=== PATIENT | female | born 1965 | race Caucasian/White ===

== ENCOUNTER → 2016-10-13 | Outpatient (CLI) | payer BC ==
[~2016-10-13] MED LIST: ALTACE 5MG5 MG PO; ASPIRIN E.C. 8181 MG PO; BETAPACE 120MG120 MG PO; BETAPACE 80MG80 MG PO; CARDIZEM CD 12120 MG PO; CEPHALEXIN500 M1 PO; CIPRO 500MG TA500 MG PO; COLON HEALTH PO; COZAAR100 MG PO; DILTIAZEM CD240 MG PO; HCTZ 25MG25 MG PO; LIPITOR 10MG10 MG PO; MOTRIN 600600 MG/TAB PO; MULTAQ400 M1 PO; OMEPRAZOLE D/R20 MG PO; PRILOSEC 20MG20 MG PO; TAMBOCOR150 MG PO; TIKOSYN0.25 MG PO; TIKOSYN0.5 MG PO; TOPCARE ASPIRI325 MG PO; TYLENOL 325MG325 MG PO
== END ==
LOC: SUN.DIA 11:08
DX: E11.65 Type 2 diabetes mellitus with hyperglycemia (principal); Z79.4 Long term (current) use of insulin; E66.9 Obesity, unspecified; Z68.43 Body mass index [BMI] 50.0-59.9, adult; Z71.3 Dietary counseling and surveillance; E78.5 Hyperlipidemia, unspecified; I10 Essential (primary) hypertension
CPT/HCPCS: G0108

== ENCOUNTER → 2017-01-01 | Outpatient (CLI) | payer BC | LOC: COL.VAS 10:31 | DX: R60.0 Localized edema (principal) ==

== ENCOUNTER → 2017-01-12 | Outpatient (CLI) | payer BC | LOC: SUN.DIA 14:21 | DX: E11.65 Type 2 diabetes mellitus with hyperglycemia (principal); E66.8 Other obesity; Z68.43 Body mass index [BMI] 50.0-59.9, adult; Z79.4 Long term (current) use of insulin; Z71.3 Dietary counseling and surveillance; E78.5 Hyperlipidemia, unspecified; I10 Essential (primary) hypertension | CPT/HCPCS: G0108 ==

== ENCOUNTER 2017-03-25 16:00 | Outpatient (RCR) | payer BC | END 2017-03-29 | LOC: WSPT | DX: M25.562 Pain in left knee (principal); M25.561 Pain in right knee; M54.5 Low back pain ==

== ENCOUNTER 2017-05-14 16:15 | Outpatient (RCR) | payer BC | END 2017-05-25 08:36 | LOC: WSPT 16:15 | DX: M25.561 Pain in right knee (principal); M25.562 Pain in left knee; M54.9 Dorsalgia, unspecified ==

== ENCOUNTER 2017-09-24 08:43 | Day surgery (SDC) | payer BC ==
[~2017-09-24] VITALS: Ht 162.6 cm; Wt 139.0 kg
[2017-09-24 09:31] VITALS: BP 148/90; PULSE 69; TEMP 98.3
[2017-09-24] MEDS ORDERED: TAMBOCOR50 MG PO (09:38)
[2017-09-24] MEDS ORDERED: ELIQUIS 5MG PO (09:38)
[2017-09-24] MEDS ORDERED: FOLIC ACID 11 MG/TA1 PO (09:39)
[2017-09-24] MEDS ORDERED: LASIX 20MG TABL20 MG PO (09:40)
[2017-09-24] MEDS ORDERED: NEURONTIN300 MG/CAP PO (09:40)
[2017-09-24] MEDS ORDERED: GLYXAMBI1 TAB PO (09:41)
[2017-09-24] MEDS ORDERED: TRESIBA FL200 UNIT/1 SQ (09:42)
[2017-09-24] MEDS ORDERED: HUMALOG KW200 UNIT/1 SQ ×2 (09:44→09:45)
[2017-09-24] MEDS ORDERED: COZAAR100 MG PO (09:45)
[2017-09-24] MEDS ORDERED: TOPROL XL 25MG25 MG PO (09:46)
[2017-09-24] MEDS ORDERED: ALDACTONE 25MG25 M1 PO (09:47)
[2017-09-24] MEDS ORDERED: ZYRTEC 10MG10 MG PO (09:48)
[2017-09-24 10:55] VITALS: BP 147/79; PULSE 61; TEMP 97.6
[2017-09-24 11:10] VITALS: BP 147/66; PULSE 58
== END 2017-09-24 11:30 | disposition home or self-care (01) ==
LOC: SDCO 08:43
DX: K21.0 Gastro-esophageal reflux disease with esophagitis (principal); K29.30 Chronic superficial gastritis without bleeding; R19.5 Other fecal abnormalities; D50.9 Iron deficiency anemia, unspecified; K64.0 First degree hemorrhoids; K63.89 Other specified diseases of intestine; Z79.01 Long term (current) use of anticoagulants; I10 Essential (primary) hypertension; E66.01 Morbid (severe) obesity due to excess calories; Z68.43 Body mass index [BMI] 50.0-59.9, adult
CPT/HCPCS: OP; J2250; J2405; J3010

== ENCOUNTER → 2017-10-01 | Outpatient (CLI) | payer BC ==
[~2017-10-01] MED LIST changes: +ALDACTONE 25MG25 M1 PO; +ELIQUIS 5MG PO; +FOLIC ACID 11 MG/TA1 PO; +GLYXAMBI1 TAB PO; +HUMALOG KW200 UNIT/1 SQ; +LASIX 20MG TABL20 MG PO; +NEURONTIN300 MG/CAP PO; +TAMBOCOR50 MG PO; +TOPROL XL 25MG25 MG PO; +TRESIBA FL200 UNIT/1 SQ; +ZYRTEC 10MG10 MG PO
== END ==
LOC: MC.RAD 09-06 07:20
DX: Z12.31 Encounter for screening mammogram for malignant neoplasm of breast (principal)

== ENCOUNTER → 2018-10-04 | Outpatient (CLI) | payer BC | LOC: MC.RAD 07:20 | DX: Z12.31 Encounter for screening mammogram for malignant neoplasm of breast (principal) ==

== ENCOUNTER 2019-01-11 09:09 | Day surgery (SDC) | payer BC ==
[2019-01-11] VITALS (7 sets, daily range): BP systolic 95–127; BP diastolic 44–91; PULSE 53–55; TEMP 98.2
[~2019-01-11] VITALS: Ht 162.6 cm; Wt 127.9 kg
--- NOTE | 2019-01-11 11:05 | NUR ---
PLEASE SEE MERGE FOR ALL MEDICATION ADMINISTRATION TIMES, SEDATION ASSESSMENT INTRA/POST PROCEDURE. FIO2 NOT USED PER CRM SPECIALIST
--- NOTE | 2019-01-11 11:10 | NUR ---
PLEASE SEE MERGE FOR ALL MEDICATION ADMINISTRATION TIMES, SEDATION ASSESSMENT DURING AND POST PROCEDURE.
[2019-01-11] MEDS ORDERED: CEPHALEXIN500 M1 PO (11:38)
--- NOTE | 2019-01-11 12:18 | NUR ---
MODERATE SEEDATION ASSESSMENT ENTERED LATE. ASSESSMENT DONE AND COMPLETED AT THE TIME OF THE PROCEDURE. PT TRANSFERRED BACK TO [facility] AT 1145.
--- NOTE | 2019-01-11 12:46 | NUR ---
Discharge instructions given to pt.Pt verbalizes understanding.INT removed,catheter tip intact.
--- NOTE | 2019-01-11 12:50 | NUR ---
Pt escorted out by this nurse.
== END 2019-01-11 13:25 | disposition home or self-care (01) ==
LOC: COL.CAR 09:09
DX: Z45.89 Encounter for adjustment and management of other implanted devices (principal); I48.91 Unspecified atrial fibrillation; I10 Essential (primary) hypertension; E78.5 Hyperlipidemia, unspecified; G47.33 Obstructive sleep apnea (adult) (pediatric); E66.9 Obesity, unspecified; Z68.42 Body mass index [BMI] 45.0-49.9, adult; Z79.899 Other long term (current) drug therapy; E11.40 Type 2 diabetes mellitus with diabetic neuropathy, unspecified; Z79.01 Long term (current) use of anticoagulants; Z79.82 Long term (current) use of aspirin
CPT/HCPCS: J0690; J2250; J3010

== ENCOUNTER → 2020-03-05 | Outpatient (CLI) | payer BC | LOC: MC.RAD 15:42 | DX: Z12.31 Encounter for screening mammogram for malignant neoplasm of breast (principal) ==

== ENCOUNTER → 2020-06-12 | Outpatient (CLI) | payer BC | LOC: COL.RAD 12:47 | DX: M71.38 Other bursal cyst, other site (principal); M51.26 Other intervertebral disc displacement, lumbar region; M48.061 Spinal stenosis, lumbar region without neurogenic claudication ==

== ENCOUNTER → 2020-07-10 | Outpatient (CLI) | payer BC | LOC: MHCPAIN 10:32 | DX: M47.817 Spondylosis without myelopathy or radiculopathy, lumbosacral region (principal); G89.29 Other chronic pain; M54.5 Low back pain; M53.3 Sacrococcygeal disorders, not elsewhere classified; E66.01 Morbid (severe) obesity due to excess calories; E11.9 Type 2 diabetes mellitus without complications; Z79.4 Long term (current) use of insulin | CPT/HCPCS: G0463 ==

== ENCOUNTER 2020-07-16 17:48 | Inpatient (IN) | payer BC ==
[~2020-07-16] VITALS: Ht 165.1 cm; Wt 127.9 kg
[2020-07-16 19:30] LABS: BASO % 0.2 % (0.0-2.0); GRAN # 3.6 (1.4-6.5); GRAN % 78.6 % (42.2-75.2); HEMATOCRIT 41.8 % (37.0-47.0); HEMOGLOBIN 12.9 g/dl (12.5-16.0); LYMPH # 0.6 (1.2-3.4); MEAN CELL VOLUME 89 fl (80.0-100.0); MEAN CORPUSCULAR HEMOGLOBIN 28 pg (27.0-31.0); MEAN CORPUSCULAR HGB CONC 31 g/dl (33.0-37.0); MEAN PLATELET VOLUME 9.3 fl (7.4-10.4); MONO # 0.4 (0.1-0.6); MONO % 8.1 % (1.7-9.3); PLATELET COUNT 204 K/mm3 (130-400); RED BLOOD COUNT 4.69 M/mm3 (4.10-5.30); REDCELL DISTRIBUTION WIDTH-CV 15.7 % (11.5-14.5)
[2020-07-16 19:34] LABS: ALBUMIN 3.9 gm/dL (3.5-5.0); BILIRUBIN,TOTAL 0.6 mg/dL (0.0-1.0); CALCIUM 8.5 mg/dL (8.4-10.2); CREATININE, serum 0.69 (0.52-1.25); POTASSIUM 3.8 mmol/L (3.4-5.0); TOTAL PROTEIN 7.3 gm/dL (6.4-8.2)
[2020-07-16 20:54] LABS: ARTERIAL BLD GAS O2 SATURATION 94.7 % (92-100); ARTERIAL BLOOD GAS BASE EXCESS -1.9 (-2-2); ARTERIAL BLOOD GAS HCO3 22.8 meq/L (22-26); ARTERIAL BLOOD GAS PCO2 38.4 mmHg (35-45); ARTERIAL BLOOD GAS PO2 73.1 mmHg (80-100); ARTERIAL BLOOD GAS pH 7.39 (7.35-7.45)
[2020-07-16] MEDS ORDERED: LIPITOR 80MG80 MG PO (21:42)
[2020-07-17] VITALS (7 sets, daily range): BP systolic 121–160; BP diastolic 59–76; PULSE 53–68; TEMP 98.1–100.4
[2020-07-17 08:13] LABS: BASO % 0.3 % (0.0-2.0); GRAN % 74.9 % (42.2-75.2); HEMATOCRIT 39.6 % (37.0-47.0); HEMOGLOBIN 11.8 g/dl (12.5-16.0); LYMPH # 0.6 (1.2-3.4); LYMPH % 15.4 % (20.0-51.0); MEAN CELL VOLUME 92 fl (80.0-100.0); MEAN CORPUSCULAR HEMOGLOBIN 27 pg (27.0-31.0); MEAN CORPUSCULAR HGB CONC 30 g/dl (33.0-37.0); MEAN PLATELET VOLUME 9.7 fl (7.4-10.4); MONO # 0.3 (0.1-0.6); MONO % 8.1 % (1.7-9.3); PLATELET COUNT 203 K/mm3 (130-400); RED BLOOD COUNT 4.32 M/mm3 (4.10-5.30); REDCELL DISTRIBUTION WIDTH-CV 15.6 % (11.5-14.5)
[2020-07-17 08:14] LABS: CALCIUM 7.8 mg/dL (8.4-10.2); CREATININE, serum 0.67 (0.52-1.25); POTASSIUM 3.7 mmol/L (3.4-5.0)
--- NOTE | 2020-07-17 10:43 | NUR ---
PT PLEASANT, AOX4, PT APPEARS ANXIOUS ABOUT HOSPITALIZATION, IV IN RAC, NO S/S OF INFILTRATION OR ERYTHEMA. PT SOB WITH EXERTION, CURRENTLY ON 4L NC, PT ON FLUIDS AND RECEIVING IV ANTIBIOTIC, ALL MEDICATIONS GIVEN, VITALS REVIEWED, MED REC REVIEWED, NKA, PT REQUESTING CPAP TO BE SET UP FOR A NAP, WILL CALL RT.
--- NOTE | 2020-07-17 10:56 | NUR ---
RT NOTIFIED OF NEED TO SET UP BIPAP. WITNISSED PT AMBULATE TO BATHROOM, PT STEADY ON HER FEET.
--- NOTE | 2020-07-17 11:00 | NUR ---
PT IV BEEPING, RAC FLUSHED AND LINE WOULD STILL SAY OCCLUDED. LOOKING FOR OTHER POSSIBLE PERIPHERAL SITES. PT REPORTS BEING A HARD STICK, ACACIA RN ALSO LOOKED FOR SITES AND DID NOT FIND ANY. POTHURU OK WITH A PICC TO BE PLACED, RONNY CALLED FOR POSSIBLE PICC LINE.
--- NOTE | 2020-07-17 11:30 | NUR ---
PT REPORTS ONLY GETTING 2 HOURS OF SLEEP IN ED DUE TO FREQUENT AWAKENINGS, PT GOING TO TRY TO NAP.
--- NOTE | 2020-07-17 17:05 | NUR ---
pt pleasant, aox4, pt denies pain or discomfort, pt has dyspnea on exertion, pt independent in the room, pt on 4L nc, Pt has cpap from home, fluids discontinued, jello brought in per pt request, picc line placed in [place], no other needs at this time.
--- NOTE | 2020-07-17 17:08 | NUR ---
attempted to call ID consult, left message.
--- NOTE | 2020-07-18 | NUR ---
Patient's temp was 100.4F and SPO2 of 90% on CPAP at 4lpm at 2327H. Rechecked patient and she was now at SPO2 93%. She is wearing her CPAP and still at 4lpm. Temp was now at 100.1F. Patient denies headache or pain.
[2020-07-18 05:02] VITALS: BP 145/58; PULSE 60; TEMP 99.3
--- NOTE | 2020-07-18 06:15 | NUR ---
Patient's latest temp is 99.3F. Still on O2 at 4lpm via NC. She was on bipap while asleep. She denies pain.
[2020-07-18 06:22] LABS: BASO % 0.2 % (0.0-2.0); GRAN # 3.8 (1.4-6.5); GRAN % 72.4 % (42.2-75.2); HEMOGLOBIN 11.1 g/dl (12.5-16.0); LYMPH # 0.8 (1.2-3.4); LYMPH % 15.6 % (20.0-51.0); MEAN CELL VOLUME 90 fl (80.0-100.0); MEAN CORPUSCULAR HEMOGLOBIN 28 pg (27.0-31.0); MEAN CORPUSCULAR HGB CONC 31 g/dl (33.0-37.0); MEAN PLATELET VOLUME 10.2 fl (7.4-10.4); MONO # 0.6 (0.1-0.6); MONO % 10.9 % (1.7-9.3); PLATELET COUNT 228 K/mm3 (130-400); RED BLOOD COUNT 4.02 M/mm3 (4.10-5.30); REDCELL DISTRIBUTION WIDTH-CV 15.5 % (11.5-14.5)
[2020-07-18 06:38] LABS: CALCIUM 8.1 mg/dL (8.4-10.2); CREATININE, serum 0.58 (0.52-1.25); POTASSIUM 3.7 mmol/L (3.4-5.0)
[2020-07-18 08:29] VITALS: BP 123/64; PULSE 58; TEMP 98.1
--- NOTE | 2020-07-18 09:23 | NUR ---
Assessment complete. Patient resting in bed on entry. States she did not sleep well as she was coughing alot through the night. Reports a headache at this time and requests tylenol. PRN tylenol was provided for this. Pt is minimally short of breath at this time but states this is normal after a coughing fit. PICC site is CD&I, flushed and beulah well. Will continue to monitor. Call light is in reach.
[2020-07-18 13:10] VITALS: BP 126/72; PULSE 53; TEMP 98.2
[2020-07-18 16:00] VITALS: BP 147/72; PULSE 55; TEMP 97.6
--- NOTE | 2020-07-18 18:21 | NUR ---
Patient has had a very uneventful shift. SHe has slept on and off through the shift. No complaints of pain or discomfort other than the headache she had this morning. Patient remains independent in the room. No other needs. Call light is in reach.
[2020-07-18 20:02] VITALS: BP 136/66; PULSE 55; TEMP 97.9
--- NOTE | 2020-07-18 21:15 | NUR ---
Patient assessed at this time. Alert and oriented x 4, and able to make needs known. Denies having pain and discomfort at this time. Double lumen PICC to RUE. Reports continued SOB with exertion. On oxygen at 5 L/min via NC. Dry cough. Given PRN Robitussin. LS CTA in upper lobes, diminished in lower. Respirations even and unalbored. HRR. Capillary refill less than 3 seconds. Non-tenting skin turgor. BSAx4. Abdomen soft and non-tender. 1+ edema BLE. Voices no questions, needs, or concerns at this time. Resting in bed with call light within reach.
[2020-07-18 23:50] VITALS: BP 122/65; PULSE 50; TEMP 98.4
[2020-07-19 04:08] VITALS: BP 132/80; PULSE 54; TEMP 98.4
[2020-07-19 07:01] LABS: HEMOGLOBIN 11.3 g/dl (12.5-16.0); MEAN CELL VOLUME 89 fl (80.0-100.0); MEAN CORPUSCULAR HEMOGLOBIN 28 pg (27.0-31.0); MEAN CORPUSCULAR HGB CONC 31 g/dl (33.0-37.0); MEAN PLATELET VOLUME 12.5 fl (7.4-10.4); PLATELET COUNT 134 K/mm3 (130-400); RED BLOOD COUNT 4.05 M/mm3 (4.10-5.30); REDCELL DISTRIBUTION WIDTH-CV 15.6 % (11.5-14.5)
[2020-07-19 07:07] LABS: CALCIUM 8.3 mg/dL (8.4-10.2); CREATININE, serum 0.59 (0.52-1.25); MAGNESIUM 2.5 mg/dL (1.6-2.3); POTASSIUM 3.7 mmol/L (3.4-5.0)
--- NOTE | 2020-07-19 07:17 | NUR ---
Patient received PRN Robitussin during the night as requested. Denies having pain and discomfort. Continues to wear oxygen at 5 L/min via NC, and CPAP at night. Voices no questions, needs, or concerns at this time. Resting in bed with call light within reach.
[2020-07-19 07:25] LABS: HEMATOCRIT 36.1 % (37.0-47.0)
[2020-07-19 08:00] VITALS: BP 129/71; PULSE 53; TEMP 97.8
[2020-07-19 08:06] LABS: BAND 7 % (0-10); LYMPHOCYTE 11 % (20.0-51.0); NEUTROPHILS 71 % (42.0-75.2); PLATELET ESTIMATE NORMAL (NORMAL)
[2020-07-19 08:07] LABS: ANISOCYTOSIS 1+
--- NOTE | 2020-07-19 11:01 | NUR ---
Assessment complete. Patient pleasant this morning, stating she feels a little better today. No complaints of pain at this time. PICC site mildly bloody, like yesterday. I informed Duyen with IV services who agreed to change her dressing and take a look at the line. Warm bath wipes and fresh gown were provided for the patient. No other needs at this time. Call light is in reach.
--- NOTE | 2020-07-19 11:15 | NUR ---
PICC intact right upper arm with sterile dressing change done with insertion site cleansed with chloraprep x 1, chlorhexidine impregnated disk applied, skin prep, stat lock, and tegaderm applied. when dressing removed disk attached to tegaderm and catheter pulled out to 1 cm marking. disk had a large amount of dried reddish drainage noted. no further drainage noted. no signs or symptoms of IV complications noted. no concerns voiced. will continue to monitor.
[2020-07-19 12:20] VITALS: BP 139/91; PULSE 61; TEMP 97.6
[2020-07-19 16:18] VITALS: BP 130/84; PULSE 56; TEMP 98
--- NOTE | 2020-07-19 18:04 | NUR ---
Patient had an uneventful shift. No complaints of pain or discomfort. PICC site is CD&I since Duyen changed the dressing, new lexi bandage provided as well. Patient states she feels a little better. No other needs at this time. Call light is in reach.
[2020-07-19 19:54] VITALS: BP 130/50; PULSE 55; TEMP 97.7
--- NOTE | 2020-07-19 21:10 | NUR ---
Patient assessed at this time. Alert and oriented x 4, and able to make needs known. Denies having pain and discomfort at this time. Double lumen PICC to RUE. Denies SOB and dyspnea at this time. On oxygen at 5 L/min via NC. Respirations even and unlabored. Wears CPAP at night. HRR. Telemetry in place. Capillary refill less than 3 seconds. Non-tenting skin turgor. BSAx4. Abdomen soft and non-tender. Reports some diarrhea. 1+ edema BLE. Voices no questions, needs, or concerns at this time. Resting in bed with call light within reach.
--- NOTE | 2020-07-19 22:15 | NUR ---
Patient given PRN Robitussin for cough as requested at this time.
[2020-07-19 23:49] VITALS: BP 151/67; PULSE 53; TEMP 98.2
[2020-07-20 04:00] VITALS: BP 140/82; PULSE 55; TEMP 98.1
[2020-07-20 06:07] LABS: CALCIUM 8.3 mg/dL (8.4-10.2); CREATININE, serum 0.58 (0.52-1.25); POTASSIUM 3.7 mmol/L (3.4-5.0)
--- NOTE | 2020-07-20 06:12 | NUR ---
Patient voices no questions, needs, or concerns at this time. Resting in bed with call light within reach. Continues on oxygen at 5 L/min via NC, and wears CPAP while sleeping.
[2020-07-20 08:55] VITALS: BP 136/74; PULSE 56; TEMP 97.8
--- NOTE | 2020-07-20 09:42 | NUR ---
Pt assessment complete. Pt is sitting up in bed watching television upon entry, she is A/O x4. Her breathing is even and unlabored on 5L O2 via NC. Turned down to 3.5L O2 and maintained an oxygen saturation of 94%. Pt denies any SOB at rest or on exertion. Does have an intermittent cough with clear sputum. Reports diarrhea yesterday, but denies today so far. No N/V. Ate breakfast without any issues. No needs at this time. Call light within reach, will continue to monitor.
[2020-07-20 10:01] LABS: HEMATOCRIT 37.6 % (37.0-47.0); HEMOGLOBIN 11.8 g/dl (12.5-16.0); MEAN CELL VOLUME 88 fl (80.0-100.0); MEAN CORPUSCULAR HEMOGLOBIN 28 pg (27.0-31.0); MEAN CORPUSCULAR HGB CONC 31 g/dl (33.0-37.0); MEAN PLATELET VOLUME 11.9 fl (7.4-10.4); RED BLOOD COUNT 4.28 M/mm3 (4.10-5.30); REDCELL DISTRIBUTION WIDTH-CV 15.7 % (11.5-14.5)
[2020-07-20 11:39] LABS: PLATELET COUNT 266 K/mm3 (130-400)
[2020-07-20 12:01] LABS: ANISOCYTOSIS 1+; BAND 6 % (0-10); HYPOCHROMIA 1+; LYMPHOCYTE 24 % (20.0-51.0); NEUTROPHILS 60 % (42.0-75.2); PLATELET ESTIMATE NORMAL (NORMAL)
[2020-07-20 12:47] VITALS: BP 129/62; PULSE 54; TEMP 98.1
[2020-07-20 15:03] VITALS: BP 132/66; PULSE 62; TEMP 97.9
--- NOTE | 2020-07-20 18:25 | NUR ---
Pt had uneventful day. Had no issues or concerns, tolerated decrease in oxygen well. Up and about the room steadily. No needs at this time.
[2020-07-20 19:45] VITALS: BP 146/78; PULSE 52; TEMP 97.8
--- NOTE | 2020-07-20 20:00 | NUR ---
Patient assessed at this time. Alert and oriented x 4, and able to make needs known. Complained of headache, and given PRN APAP. Double lumen PICC to RUE. Denies SOB and dyspnea. On oxygen at 3.5 L/min via NC. Respirations even and unlabored. HRR. Capillary refill less than 3 seconds. Non-tenting skin turgor. BSAx4. Abdomen soft and non-tender. No edema. Voices no questions, needs, or concerns at this time. Resting in bed with call light within reach.
[2020-07-21] VITALS (7 sets, daily range): BP systolic 114–142; BP diastolic 45–89; PULSE 50–56; TEMP 97.5–98.2
--- NOTE | 2020-07-21 07:08 | NUR ---
Patient has voiced no questions, needs, or concerns at this time. Patient has been resting in bed. On oxygen at 3.5 L/min via NC when CPAP is not on. Resting in bed with call light within reach.
--- NOTE | 2020-07-21 09:06 | NUR ---
Pt assessment complete. Pt is sitting on the side of the bed upon entry, she is A/O x4. Her breathing is even and unlabored on 3.5L O2 via NC. Pt denies SOB, and only has an intermittent cough. Asking about getting off of oxygen. Turned down oxygen to 2L O2. Patient maintained O2 sat >90%, discussed weaning process. No N/V/D. PICC rewrapped, no needs at this time. Call light within reach, will continue to monitor.
--- NOTE | 2020-07-21 14:42 | NUR ---
SW called patient to complete intake. Patient states that she lives in [place] with her Braxton [phone]. 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 Patient states that her can not bring up the document due to havig COVID. Patient states that she does not utilize DME and is independent with ADL's, PCP is Dr. Roque, pharmacy is [facility]. Patient states that she has not concerns of DC when that time comes and plans to go back to her home. SW will continue to follow.
--- NOTE | 2020-07-21 17:11 | NUR ---
Pt's O2 sats >95% turned down to 1L O2, will continue to monitor.
--- NOTE | 2020-07-21 17:27 | NUR ---
Pt's O2 sat's 96% on 1L, spoke with patient who feels comfortable trialing without oxygen. Oxygen removed. Will continue to monitor.
--- NOTE | 2020-07-21 21:00 | NUR ---
PT IN BED RESTING AT THIS TIME. WOULD LIKE HER NIGHT TIME MEDICATIONS SO THAT SHE CAN GO TO SLEEP. THIS RN TOOK MEDICATIONS INTO THE ROOM, DID PT ASSESEMENT, AND ALSO CHECKED PT'S O2 SATS. PT IS CURRENTLY SATURATING 91% ON ROOM AIR. PT WILL GO ONTO CPAP FOR THE NIGHT WITH 2L O2 BLEED IN. ASSSESSMENT COMPLETED. NO CONCERNS AT THIS TIME. THE PATIENT IS NOT HAVING ANY ISSUES WITH BREATHING, AND IS NOT COMPLAINING OF SOB. PT PLACED CPAP ON. NO FURTHER CONCERNS. CALL LIGHT IS WITHIN REACH.
[2020-07-22 03:37] VITALS: BP 112/71; PULSE 56; TEMP 98
--- NOTE | 2020-07-22 06:28 | NUR ---
PT HAD UNEVENTFUL NIGHT. SLEPT WELL, WAS OFF O2 FROM 1600 ON 07/11/20 UNTIL ON CPAP WHICH AT BASELINE IS 2L BLEED IN. PT STATED SHE SLEPT VERY WELL, AND FEELS RESTED. SHE IS NOW OFF CPAP, AND ON RA. SATURATIONS REMAIN IN THE MID 90s. NO OTHER CONCERNS AT THIS TIME. WILL REPORT TO DAY SHIFT RN.
[2020-07-22 07:18] LABS: BASO % 0.2 % (0.0-2.0); EOS % 0.3 % (0-4.0); GRAN # 7.1 (1.4-6.5); GRAN % 67.1 % (42.2-75.2); HEMATOCRIT 37.5 % (37.0-47.0); HEMOGLOBIN 11.8 g/dl (12.5-16.0); LYMPH % 18.6 % (20.0-51.0); MEAN CELL VOLUME 88 fl (80.0-100.0); MEAN CORPUSCULAR HEMOGLOBIN 28 pg (27.0-31.0); MEAN CORPUSCULAR HGB CONC 32 g/dl (33.0-37.0); MONO # 1.2 (0.1-0.6); MONO % 11.7 % (1.7-9.3); RED BLOOD COUNT 4.24 M/mm3 (4.10-5.30); REDCELL DISTRIBUTION WIDTH-CV 15.9 % (11.5-14.5)
[2020-07-22 07:34] LABS: CALCIUM 8.3 mg/dL (8.4-10.2); CREATININE, serum 0.64 (0.52-1.25); MAGNESIUM 2.2 mg/dL (1.6-2.3); POTASSIUM 3.9 mmol/L (3.4-5.0)
[2020-07-22 08:40] VITALS: BP 144/74; PULSE 61; TEMP 98.3
[2020-07-22 09:56] LABS: PLATELET COUNT 391 K/mm3 (130-400)
--- NOTE | 2020-07-22 09:58 | NUR ---
PT PLEASANT, AOX4, PT DENIES PAIN OR DISCOMFORT OR SOB. PT ON ROOM AIR, NO EDEMA NOTED, PICC LINE CDI W/O ERYTHEMA. MEDICATIONS GIVEN, VITALS REVIEWED, PT ATE 90% OF BREAKFAST. NO OTHER NEEEDS AT THIS TIME.
[2020-07-22] MEDS ORDERED: DOXYCYCLINE 10100 MG PO (10:48)
[2020-07-22] MEDS ORDERED: DECADRON6 MG PO (10:49)
[2020-07-22] MEDS ORDERED: PROAIR HFA0.09 MG/AC IH (10:50)
[2020-07-22 12:41] VITALS: BP 129/86; PULSE 61
--- NOTE | 2020-07-22 12:44 | NUR ---
PT VITALS STABLE, PT DISCHARGE EDUCATION GIVEN, PT VERBALIZES UNDERSTANDING. CALLED CHARGE FOR REMOVAL OF PICC LINE, UNABLE TO AT THIS TIME, NOTIFIED RONNY OF NEED FOR REMOVAL AND STATED IT WOULD BE ABOUT 45MIN. PT NOTIFIED OF THIS WAIT TIME AND APPEARS FINE WITH IT.
--- NOTE | 2020-07-22 14:42 | NUR ---
PT ESCORTED OUT OF HOSPITAL WITH BELONGINGS AND DISCHARGE PAPERWORK, PICC LINE REMOVED BY SUSANA CARTAGENA
== END 2020-07-22 13:00 | disposition home or self-care (01) | DRG 177 ==
LOC: COL.ER 17:48 → PEDS 21:53
PROVIDERS: Hospitalist; Internal Medicine; Nurse Practitioner Family; Physician Assistant; ADMIT Student in an Organized Health Care Education/Training Program
PROC: XW033E5 Introduction of Remdesivir Anti-infective into Peripheral Vein, Percutaneous Approach, New Technology Group 5 (ICD-10-PCS; principal; 2020-07-16)
PROC: 02HV33Z Insertion of Infusion Device into Superior Vena Cava, Percutaneous Approach (ICD-10-PCS; 2020-07-16)
DX: U07.1 COVID-19 (principal); J12.89 Other viral pneumonia; J96.01 Acute respiratory failure with hypoxia; Z68.42 Body mass index [BMI] 45.0-49.9, adult; I10 Essential (primary) hypertension; E78.5 Hyperlipidemia, unspecified; I48.91 Unspecified atrial fibrillation; E11.9 Type 2 diabetes mellitus without complications; E66.01 Morbid (severe) obesity due to excess calories; G47.30 Sleep apnea, unspecified; Z79.4 Long term (current) use of insulin; Z79.01 Long term (current) use of anticoagulants
CPT/HCPCS: 99223-AI; 99231-AI; 99232-AI; 99233-AI; 99239; C1751; C1892; J0696; J1815; J2405; J7030; J7050; J8540

== ENCOUNTER → 2020-10-03 | Outpatient (CLI) | payer BC ==
[~2020-10-03] MED LIST changes: +DECADRON6 MG PO; +DOXYCYCLINE 10100 MG PO; +LIPITOR 80MG80 MG PO; +PROAIR HFA0.09 MG/AC IH
== END ==
LOC: MHCPAIN 14:16
DX: M47.817 Spondylosis without myelopathy or radiculopathy, lumbosacral region (principal); M54.5 Low back pain

== ENCOUNTER → 2020-10-09 | Outpatient (CLI) | payer BC | LOC: MHCPAIN 13:59 | DX: M47.817 Spondylosis without myelopathy or radiculopathy, lumbosacral region (principal); M54.5 Low back pain; M53.3 Sacrococcygeal disorders, not elsewhere classified; E66.8 Other obesity; E11.9 Type 2 diabetes mellitus without complications; Z79.4 Long term (current) use of insulin | CPT/HCPCS: G0463 ==

== ENCOUNTER → 2020-10-10 | Outpatient (CLI) | payer BC | LOC: MHCPAIN 13:45 | DX: M47.817 Spondylosis without myelopathy or radiculopathy, lumbosacral region (principal); M54.5 Low back pain ==

== ENCOUNTER → 2020-10-14 | Outpatient (CLI) | payer BC | LOC: MHCPAIN 09:56 | DX: M47.816 Spondylosis without myelopathy or radiculopathy, lumbar region (principal); M54.5 Low back pain; M53.3 Sacrococcygeal disorders, not elsewhere classified; G89.29 Other chronic pain | CPT/HCPCS: G0463 ==

== ENCOUNTER → 2020-10-17 | Outpatient (CLI) | payer BC | LOC: MHCPAIN 08:12 | DX: M47.817 Spondylosis without myelopathy or radiculopathy, lumbosacral region (principal); M54.5 Low back pain; M53.3 Sacrococcygeal disorders, not elsewhere classified | CPT/HCPCS: J1100; J2250; J3010 ==

== ENCOUNTER → 2020-10-21 | Outpatient (CLI) | payer BC | LOC: MHCPAIN 10:09 | DX: M47.817 Spondylosis without myelopathy or radiculopathy, lumbosacral region (principal); M54.5 Low back pain; M53.3 Sacrococcygeal disorders, not elsewhere classified | CPT/HCPCS: J1100; J2250; J3010 ==

== ENCOUNTER → 2020-12-24 | Outpatient (CLI) | payer BC | LOC: MHCPAIN 14:44 | DX: M47.817 Spondylosis without myelopathy or radiculopathy, lumbosacral region (principal); M54.5 Low back pain; M53.3 Sacrococcygeal disorders, not elsewhere classified; G89.29 Other chronic pain | CPT/HCPCS: G0463 ==

== ENCOUNTER → 2021-04-29 | Outpatient (CLI) | payer BC | LOC: MHCPAIN 14:28 | DX: M47.817 Spondylosis without myelopathy or radiculopathy, lumbosacral region (principal); M54.5 Low back pain; M53.3 Sacrococcygeal disorders, not elsewhere classified | CPT/HCPCS: G0463 ==

== ENCOUNTER → 2021-05-15 | Outpatient (CLI) | payer BC | LOC: MHCPAIN 09:37 | DX: M47.817 Spondylosis without myelopathy or radiculopathy, lumbosacral region (principal); M54.5 Low back pain; M53.3 Sacrococcygeal disorders, not elsewhere classified | CPT/HCPCS: J2250; J3010 ==

== ENCOUNTER → 2021-05-27 | Outpatient (CLI) | payer BC | LOC: MC.RAD 10:10 | DX: Z12.31 Encounter for screening mammogram for malignant neoplasm of breast (principal) ==

== ENCOUNTER → 2021-07-30 | Outpatient (CLI) | payer BC | LOC: MHCPAIN 14:54 | DX: M47.816 Spondylosis without myelopathy or radiculopathy, lumbar region (principal); M54.50 Low back pain, unspecified; M53.3 Sacrococcygeal disorders, not elsewhere classified | CPT/HCPCS: G0463 ==

== ENCOUNTER → 2021-08-21 | Outpatient (CLI) | payer BC | LOC: MHCPAIN 10:55 | DX: M47.817 Spondylosis without myelopathy or radiculopathy, lumbosacral region (principal); M53.3 Sacrococcygeal disorders, not elsewhere classified | CPT/HCPCS: G0260; J1040; Q9967 ==

== ENCOUNTER → 2021-09-17 | Outpatient (CLI) | payer BC | LOC: MHCPAIN 14:39 | DX: M47.817 Spondylosis without myelopathy or radiculopathy, lumbosacral region (principal); M54.50 Low back pain, unspecified; M53.3 Sacrococcygeal disorders, not elsewhere classified | CPT/HCPCS: G0463 ==

== ENCOUNTER → 2021-12-30 | Outpatient (CLI) | payer BC | LOC: MHCPAIN 14:41 | DX: M47.817 Spondylosis without myelopathy or radiculopathy, lumbosacral region (principal); M53.3 Sacrococcygeal disorders, not elsewhere classified; M54.50 Low back pain, unspecified | CPT/HCPCS: G0463 ==

== ENCOUNTER → 2022-01-08 | Outpatient (CLI) | payer BC | LOC: MHCPAIN 10:53 | DX: M53.3 Sacrococcygeal disorders, not elsewhere classified (principal); M47.817 Spondylosis without myelopathy or radiculopathy, lumbosacral region | CPT/HCPCS: G0260; J1040; Q9967 ==

== ENCOUNTER 2022-04-15 09:27 | Day surgery (SDC) | payer BC ==
[~2022-04-15] VITALS: Ht 162.6 cm; Wt 134.9 kg
[2022-04-15 09:59] VITALS: BP 146/82; PULSE 55; TEMP 96.7
[2022-04-15] MEDS ORDERED: LASIX 20MG TABL20 MG PO (10:20)
[2022-04-15] MEDS ORDERED: ALDACTONE 25MG25 M1 PO (10:21)
[2022-04-15] MEDS ORDERED: ULTRAM 50MG TAB50 MG PO (10:22)
[2022-04-15 11:02] VITALS: BP 137/66; PULSE 48; TEMP 96.6
[2022-04-15 11:17] VITALS: BP 133/71; PULSE 47
--- NOTE | 2022-04-15 11:18 | NUR ---
1102 - PT arrives from procedure and was settled by Sherri CARTAGENA. Verbal report then obtained; vitals obtained, however, S02 and HR were unable to be obtained from finger, probe was placed on ear and then big toe of R foot for reading. PT denies pain and nasuea; provided snack and drink. Visitor remains present. PT oriented to room and call guzmán, within reach. 1117 - Vitals obtained. is speaking w/ PT. Call guzmán remains within reach.
[2022-04-15 11:32] VITALS: BP 153/96; PULSE 50
--- NOTE | 2022-04-15 11:40 | NUR ---
1132 - VSS. PT expressed desire to be discharged. IV discontinued. Catheter tip intact. Pressure bandage applied. NO redness or swelling noted. DC instructions and educational material reviewed w/ PT who verbalized understanding and signed the related paperwork. Questions answered to PT satisfaction. PT refused RN assistance changing into personal clothes; call guzmán remains within reach if needed and state he will assist.
--- NOTE | 2022-04-15 11:51 | NUR ---
1145 - PT dismissed from endo via wheelchair by Liudmila CARTAGENA to PT entrence. PT has DC packet and personal belongings. PT was transferred into the care of her , who is driving private car.
== END 2022-04-15 11:50 | disposition home or self-care (01) ==
LOC: SDCO 09:27
DX: D12.3 Benign neoplasm of transverse colon (principal); K29.50 Unspecified chronic gastritis without bleeding; K25.9 Gastric ulcer, unspecified as acute or chronic, without hemorrhage or perforation; D50.9 Iron deficiency anemia, unspecified; K64.0 First degree hemorrhoids
CPT/HCPCS: J2704; J7030